=== PATIENT | male | born 1980 | race Hispanic/Latino ===

== ENCOUNTER 2024-04-24 11:37 | Emergency (ER) | payer BC ==
[~2024-04-24] VITALS: Ht 182.9 cm; Wt 90.7 kg
--- NOTE | 2024-04-24 11:59 | NUR ---
EMS reports that patient was at [facility] for SI, medical clearance. Patient was accepted to [facility] and when they arrived, they called EMS due to patients current state. Patient is not answering questions, reported to be hurting all over.
--- NOTE | 2024-04-24 12:10 | NUR ---
Patient not voicing SI at this time due to current state.
--- NOTE | 2024-04-24 12:15 | NUR ---
Security called for belongings, pending arrival.
[2024-04-24 12:20] VITALS: BP 120/58; PULSE 92; RESP 17; TEMP 98; O2SAT 98
[2024-04-24 12:23] LABS: APPEARANCE,URINE CLOUDY (CLEAR); BILIRUBIN,URINE NEGATIVE (NEGATIVE); COLOR,URINE YELLOW (YELLOW); GLUCOSE, URINE (UA) NEGATIVE (NEGATIVE); KETONES,URINE 60 mg/dL (NEGATIVE); LEUKOCYTE ESTERASE ,URINE 25 Leu/uL (NEGATIVE); NITRATE,URINE NEGATIVE (NEGATIVE); PROTEIN,URINE 50 mg/dL (NEGATIVE); UROBILINOGEN,URINE 0.2 mg/dL (0.2-1.0)
[2024-04-24 12:27] LABS: ADD UA MICROSCOPIC YES
[2024-04-24 12:29] LABS: AMPHET/METH SCREEN,URINE POSITIVE (NEGATIVE); BACTERIA,URINE FEW /HPF (None Seen); BARBITURATE SCREEN, URINE NEGATIVE (NEGATIVE); BENZODIAZEPINES SCREEN,URINE NEGATIVE (NEGATIVE); CANNABINOID SCREEN,URINE NEGATIVE (NEGATIVE); COCAINE SCREEN,URINE NEGATIVE (NEGATIVE); MUCUS,URINE MANY LPF (None Seen); OPIATE SCREEN,URINE NEGATIVE (NEGATIVE); PHENCYCLIDINE SCREEN,URINE NEGATIVE (NEGATIVE)
[2024-04-24 12:36] LABS: BASOPHILS # (AUTO) 0.04 K/uL (0.00-0.20); BASOPHILS % (AUTO) 0.4 % (0.0-5.0); EOSINOPHILS # (AUTO) 0.14 K/uL (0.00-0.70); EOSINOPHILS % (AUTO) 1.4 % (0.0-8.0); HEMATOCRIT 50.8 % (42-54); IMMATURE GRANULOCYTE ABSOLUTE 0.03 K/uL (0-1); LYMPHOCYTES # (AUTO) 1.6 K/uL (1.0-4.8); LYMPHOCYTES % (AUTO) 15.9 % (21.0-51.0); MEAN CORPUSCULAR HEMOGLOBIN 28.2 pg (27.0-33.0); MEAN CORPUSCULAR HGB CONC 33.9 g/dL (32.0-36.0); MEAN CORPUSCULAR VOLUME 83.1 fL (79-99); MONOCYTES # (AUTO) 0.6 K/uL (0.1-1.0); MONOCYTES % (AUTO) 6.3 % (3.0-13.0); NEUTROPHILS # (AUTO) 7.7 K/uL (1.8-7.7); NEUTROPHILS % (AUTO) 75.7 % (40.0-77.0); PLATELET COUNT (AUTO) 281 K/uL (130-400); RED BLOOD CELL COUNT(AUTO) 6.11 MIL/uL (4.50-6.20); RED CELL DISTRIBUTION WIDTH 13.8 % (11.0-15.5); WHITE BLOOD COUNT (AUTO) 10.2 K/uL (4.8-10.8)
[2024-04-24 12:43] LABS: CARBON DIOXIDE 32 mmol/L (21-32); CHLORIDE 99 mmol/L (101-111); GLOMERULAR FILTR. RATE CALC 96 mL/min (>90); GLUCOSE,RANDOM 75 mg/dL (70-105); POTASSIUM 3.7 mmol/L (3.5-5.1); SODIUM SERUM 139 mmol/L (136-145); UREA NITROGEN, BLOOD 14 mg/dL (7-18)
[2024-04-24 12:57] LABS: ALANINE AMINOTRANSFERASE 40 U/L (12-78); ALBUMIN 4.3 g/dL (3.5-5.0); ALCOHOL, BLOOD < 3 mg/dL (0-10); AMMONIA < 10 umol/L (11-32); ASPARTATE AMINOTRANSFERASE 34 U/L (10-37); BILIRUBIN,DIRECT 0.2 mg/dL (0.0-0.3); BILIRUBIN,TOTAL 1.1 mg/dL (0.2-1.0); TOTAL PROTEIN, SERUM 8.7 g/dL (6.0-8.3)
[2024-04-24 13:00] LABS: ACETAMINOPHEN < 1 mcg/mL (10-29)
[2024-04-24 13:01] LABS: CREATINE KINASE, TOTAL 452 U/L (21-232)
--- NOTE | 2024-04-24 13:12 | EKG ---
[facility] Test Date: 2024-04-24 Test Time: 12:19:48 Pat Name: BRIANA SPENCE Department: [facility] Room: Gender: M Interactive Designer: [id number] : 1980 Requested By: XIMENA OSCAR Order Number: [id number] Reading MD: Elvin Lezama Measurements Intervals [place] Rate: 87 P: 76 IA: 142 QRS: 43 QRSD: 89 T: 39 QT: 393 QTc: 474 Interpretive Statements Sinus rhythm No previous ECG available for comparison Electronically Signed On 04-24-2024 20:04:25 TAX MAP TECHNICIAN by Elvin Lezama Please click the below link to view image of tracing.
--- NOTE | 2024-04-24 13:24 | HMCIMG ---
CT HEAD/BRAIN W/O CONTRAST HISTORY: Altered mental status COMPARISON: None TECHNIQUE: Multiple sequential axial images of the head were obtained from the base of the skull through vertex. Patient was not given contrast through intravenous route. FINDINGS: The ventricles and extraventricular CSF spaces are dilated consistent with cerebral atrophy. Nonspecific white matter changes seen. There is no midline shift, mass effect or herniation. No acute intracranial bleed is seen. Visualized portion of the paranasal sinuses are grossly within normal limits. IMPRESSION: 1. No acute intracranial bleed is seen. 2. Atrophy with white matter changes. CT was performed with one or more following dose reduction techniques: automated exposure control, adjustment of the mA and kv according to patient's size, or use of a iterative reconstruction technique.
--- NOTE | 2024-04-24 13:39 | ERN ---
ED Note History of Present Illness Stated Complaint: AMS Chief Complaint: Psych Evaluation Time Seen by MD: 12:02 Time Seen by Midlevel: 12:02 Dictation: 43-year-old male presents to the ED via EMS for evaluation of AMS onset [employer]. As per EMS patient arrived [facility] due to SI and not taking his medication, but patient was uncooperative and not answering questions and was sent by [facility] to the ED for evaluation and psych screening. Allergies: Coded Allergies: No Known Allergies (Unverified Allergy, Unknown, 04/24/24) Past Medical History Past Medical History: Unknown Surgical History: Other Review of System Dictation ROS unable to obtain due to clinical condition Initial Vital Sign VS Vital Signs Date Time Temp Pulse Resp B/P (MAP) Pulse Ox O2 Delivery O2 Flow Rate FiO2 04/24/24 11:40 97.9 72 20 128/82 99 Room Air 04/24/24 12:20 0 21 Physical Exam Dictation General: sleeping and uncooperative Head/Face: Normocephalic, atraumatic ENT: oral cavity clear, TMs clear, no signs of infection Neck: Trachea midline, supple, no nuchal rigidity Cardiovascular: RRR, normal S1/S2, No MRGs, no JVD Respiratory: CTAB, no respiratory distress, No rales or wheezes Abdomen: Soft, non-tender, non-distended, normal bowel sounds, no guarding or rebound. Skin: Warm, dry, normal turgor, no rash MS/Extremity: Pulses equal, no cyanosis, neurovascular intact, FROM Results (Laboratory/Radiology) Laboratory/Radiology Laboratory Tests Test 04/24/24 12:00 04/24/24 12:15 Urine Color YELLOW (YELLOW) Urine Appearance CLOUDY (CLEAR) H Urine pH 6.0 (5.0-8.0) Urine Specific [place] 1.028 (1.001-1.031) Urine Protein 50 mg/dL (NEGATIVE) H Urine Glucose (UA) NEGATIVE mg/dL (NEGATIVE) Urine Ketones 60 mg/dL (NEGATIVE) H Urine Occult Blood +- (TRACE) (NEGATIVE) H Urine Nitrate NEGATIVE (NEGATIVE) Urine Bilirubin NEGATIVE mg/dL (NEGATIVE) Urine Urobilinogen 0.2 mg/dL (0.2-1.0) Urine Leukocyte Esterase 25 David/uL (NEGATIVE) H Urine RBC 11-25 /HPF (0-1) H Urine WBC 11-25 /HPF (0-1) H Urine Bacteria FEW /HPF (None Seen) Urine Hyaline Casts 11-25 /LPF (0-1 /LPF) H Urine Opiates Screen NEGATIVE (NEGATIVE) Urine Barbiturates Screen NEGATIVE (NEGATIVE) Urine Phencyclidine Screen NEGATIVE (NEGATIVE) Urine Amphetamines Screen POSITIVE (NEGATIVE) H Urine Benzodiazepines Screen NEGATIVE (NEGATIVE) Urine Cocaine Screen NEGATIVE (NEGATIVE) Urine Marijuana (THC) Screen NEGATIVE (NEGATIVE) White Blood Count 10.2 K/uL (4.8-10.8) Red Blood Count 6.11 MIL/uL (4.50-6.20) Hemoglobin 17.2 g/dL (14.0-18.0) Hematocrit 50.8 % (42-54) Mean Corpuscular Volume 83.1 fL (79-99) Mean Corpuscular Hemoglobin 28.2 pg (27.0-33.0) Mean Corpuscular Hemoglobin Concent 33.9 g/dL (32.0-36.0) Red Cell Distribution Width 13.8 % (11.0-15.5) Platelet Count 281 K/uL (130-400) Mean Platelet Volume 10.2 fL (7.5-10.5) Immature Granulocyte % (Auto) 0.3 % (0-1) Neutrophils (%) (Auto) 75.7 % (40.0-77.0) Lymphocytes (%) (Auto) 15.9 % (21.0-51.0) L Monocytes (%) (Auto) 6.3 % (3.0-13.0) Eosinophils (%) (Auto) 1.4 % (0.0-8.0) Basophils (%) (Auto) 0.4 % (0.0-5.0) Neutrophils # (Auto) 7.7 K/uL (1.8-7.7) Lymphocytes # (Auto) 1.6 K/uL (1.0-4.8) Monocytes # (Auto) 0.6 K/uL (0.1-1.0) Eosinophils # (Auto) 0.14 K/uL (0.00-0.70) Basophils # (Auto) 0.04 K/uL (0.00-0.20) Absolute Immature Granulocyte (auto 0.03 K/uL (0-1) Nucleated Red Blood Cells 0.0 % (0.0-0.19) Sodium Level 139 mmol/L (136-145) Potassium Level 3.7 mmol/L (3.5-5.1) Chloride Level 99 mmol/L (101-111) L Carbon Dioxide Level 32 mmol/L (21-32) Blood Urea Nitrogen 14 mg/dL (7-18) Creatinine 1.0 mg/dL (0.5-1.3) Glomerular Filtration Rate Calc 96 mL/min (>90) Random Glucose 75 mg/dL (70-105) Total Calcium 9.4 mg/dL (8.5-10.1) Total Bilirubin 1.1 mg/dL (0.2-1.0) H Direct Bilirubin 0.2 mg/dL (0.0-0.3) Aspartate Amino Transf (AST/SGOT) 34 U/L (10-37) Alanine Aminotransferase (ALT/SGPT) 40 U/L (12-78) Alkaline Phosphatase 86 U/L (50-136) Ammonia < 10 umol/L (11-32) L Total Creatine Kinase 452 U/L (21-232) *H Total Protein 8.7 g/dL (6.0-8.3) H Albumin 4.3 g/dL (3.5-5.0) Acetaminophen Level < 1 mcg/mL (10-29) L Serum Alcohol < 3 mg/dL (0-10) Labs Reviewed?: Yes EKG Comment: EKG 04/24/2024 time 12:19 p.m. ventricular rate 87, sinus rhythm, FL 142 QRS D 89. QT 393. No STEMI ED Course ED Course Orders Procedure Category Date Status Time 12 Lead Ekg Tracing- EKG 04/24/24 Resulted Technical 12:03 Acetaminophen LAB 04/24/24 Complete 12:03 Alcohol, Blood LAB 04/24/24 Complete 12:03 Ammonia LAB 04/24/24 Complete 12:03 Basic Metabolic Panel LAB 04/24/24 Complete 12:03 Cbc With Differential LAB 04/24/24 Complete 12:03 Creatine Kinase, Total LAB 04/24/24 Complete 12:03 Drug Screen Urine LAB 04/24/24 Complete 12:03 Hepatic Function Panel LAB 04/24/24 Complete 12:03 Urinalysis Profile LAB 04/24/24 Complete 12:03 Ct Head/Brain W/O CT 11/18/24 Resulted Contrast 12:03 Culture Urine TRISTEN 04/24/24 In Process 12:30 Vital Signs Date Time Temp Pulse Resp B/P (MAP) Pulse Ox O2 Delivery O2 Flow Rate FiO2 04/24/24 12:20 98.1 92 17 120/58 98 Room Air* 0 21 04/24/24 11:40 97.9 72 20 128/82 99 Room Air Medical Decision Making MDM MDM: Differential diagnosis: AMS, SI Previous outside records reviewed: Old ER visits. Need for hospitalization: Patient does not meet criteria for hospitalization. Need for emergency major/minor surgery: No Patient's prior external medical records from other ER visits were reviewed by me as indicated. Prior testing and results from previous visits were reviewed. Prior tests were taken into account with medical decision making and resource utilization, independent historian/historians were used to obtain complete medical history. I independently interpreted the test that were performed, results were reviewed by me and considered findings on radiology if ordered. Medical management and examination interpretation discussions were had by me with other qualified healthcare professionals as indicated for the patient's care. Patient was medically cleared for transfer to inpatient psychiatric facility, however patient eloped left against medical advice, police was called made contact with the patient at a nearby store and transported patient to psychiatric facility for additional care and treatment. DX & DISP Disposition: AMA Departure Impression: Primary Impression: Suicidal ideations Additional Impression: Medical clearance for psychiatric admission Condition: Against Medical Advice I have reviewed, & agreed with my scribe's, documentation. (Entered by Matty Guiterrez, acting as a scribe for Dr. Oscar) I personally scribed for ANTIONE DOWNING (RAFA) on 04/24/24 at 13:39. Electronically submitted by Matty Gutierrez ([employer]). I personally scribed for ANTIONE DOWNING (RAFA) on 04/24/24 at 15:09. Electronically submitted by Matty Gutierrez ([employer]). ANTIONE DOWNING Apr 24, 2024 13:39 XIMENA OSCAR MD Apr 24, 2024 16:59
--- NOTE | 2024-04-24 15:01 | NUR ---
SPOKE TO PHYLLIS FROM [facility] AND STATES PT IS NOT UNDER SECTION AND IS UNDER VOLUNTARY ADMISSION. IF PT IS MEDICALLY CLEAR HE IS TO REPORT TO [facility] AFTER DISCHARGE.
--- NOTE | 2024-04-24 15:10 | NUR ---
SPOKE TO JANNIE FROM [facility] AND SHE STATES PT IS UNDER SECTION AND THAT THE SECTION WAS SENT WITH EMS. ADVISED THEM PT IS MEDICALLY CLEAR AND HE IS WANTING TO LEAVE. WILL CALL [facility] IF THEY CAN [facility]ONOR [facility] SECTION.
--- NOTE | 2024-04-24 15:45 | NUR ---
PER [place] [employer] DISPATCH THEY WILL HONOR SECTION AND WILL SEND A UNIT FOR TRANPORT.
--- NOTE | 2024-04-24 15:55 | NUR ---
PT IS UPSET AND IS LEAVING. WAS ADVISED TO AWAIT UNIT THAT IS COMING TO PICK HIM UP. PT DID NOT WANT TO WAIT AND WALKED OUT EMS BAY. [facility] CALLED AND REPORTED WHAT PT WAS WEARING AND THAT HE WALKED OUT OF ER. [facility] WILL SEND A UNIT
--- NOTE | 2024-04-24 16:59 | NUR ---
[facility] ARRIVED AND REQUESTING SECTION FOR PT THAT ELOPED. OFFICER [facility][id number] WAS GIVEN SECTION FORM AND SHE STATES SHE WILL BE TRANSPORTING PT TO [facility] AT THIS TIME. ER PROVIDER DR OSCAR MADE AWARE. CASE #[id number]
--- NOTE | 2024-04-24 17:10 | NUR ---
SPOKE TO NURSE ERASMO CEJA [facility] A GAVE REPORT.
== END 2024-04-24 17:14 | disposition home or self-care (01) ==
LOC: EDH 11:37
DX: R45.851 Suicidal ideations (principal); Z98.890 Other specified postprocedural states
CPT/HCPCS: 36415; 70450; 80048; 80076; 80305; 81001; 82140; 82550; 85025; 87086; 93005; 99284